=== PATIENT | male | born 1995 | race Two or more races ===

== ENCOUNTER 2018-01-23 10:07 | Emergency (ER) | payer OTHER ==
[2018-01-23 10:28] VITALS: BP 122/95; PULSE 87; TEMP 98.3; BMI 20.5
[2018-01-23] MEDS ORDERED: ONDANSETRON *ODT* 4 MG TABLET SL ONE (11:22)
[2018-01-23] MEDS ORDERED: ACETAMINOPHEN 500 MG TABLET (FP) PO ONE (11:22)
[2018-01-23] MEDS ORDERED: ONDANSETRON *ODT* 4 MG TABLET ONE (11:28)
[2018-01-23] MEDS ORDERED: ACETAMINOPHEN 500 MG TABLET (FP) ONE (11:28)
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
== END 2018-01-23 12:55 | disposition home or self-care (01) ==
LOC: JERFT 10:07
DX: S16.1XXA Strain of muscle, fascia and tendon at neck level, initial encounter (principal); S29.012A Strain of muscle and tendon of back wall of thorax, initial encounter; S06.0X9A Concussion with loss of consciousness of unspecified duration, initial encounter; S39.012A Strain of muscle, fascia and tendon of lower back, initial encounter; V43.52XA Car driver injured in collision with other type car in traffic accident, initial encounter; Y93.89 Activity, other specified; Y92.410 Unspecified street and highway as the place of occurrence of the external cause; F32.9 Major depressive disorder, single episode, unspecified
CPT/HCPCS: 70450-TC; 99281-25; Q0162